=== PATIENT | male | born 1975 | race Caucasian/White ===

== ENCOUNTER 2020-10-12 13:19 | Emergency (ER) | payer MEDICAID ==
[~2020-10-12] VITALS: Ht 182.9 cm; Wt 122.7 kg
[2020-10-12 13:28] VITALS: BP 131/84
== END 2020-10-12 14:41 | disposition home or self-care (01) ==
LOC: ER 13:20
DX: G89.29 Other chronic pain (principal); M54.5 Low back pain; F32.9 Major depressive disorder, single episode, unspecified; F17.200 Nicotine dependence, unspecified, uncomplicated; Z98.890 Other specified postprocedural states; Z72.89 Other problems related to lifestyle
CPT/HCPCS: 99282